=== PATIENT | male | born 1940 | race Caucasian/White ===

== ENCOUNTER 2022-09-16 22:11 | Emergency (ER) | payer OTHER ==
[~2022-09-16] VITALS: Ht 172.7 cm; Wt 63.5 kg
--- NOTE | 2022-09-16 22:11 | NUR ---
PT TONEY BLS. TAKEN TO BED 8
[2022-09-16 22:15] VITALS: BP 122/42
--- NOTE | 2022-09-16 22:37 | NUR ---
Urine dropped off at lab.
[2022-09-17] MEDS ORDERED: KETOROLAC 30 MG/ML VIAL IVP ONE (02:20)
[2022-09-17] MEDS ORDERED: CIPR500T4 PO (02:26)
[2022-09-17] MEDS ORDERED: cefTRIAXone 1,000 MG VIAL ONE (02:33)
--- NOTE | 2022-09-17 07:10 | NUR ---
PT RECEIVED, CARE ASSUMED. PT LAYING IN BED ASLEEP. NO ACUTE DISTRESS NOTED. V/S NOTED. WILL CONTINUE TO MONITOR
--- NOTE | 2022-09-17 08:03 | NUR ---
CALLED VALERIE NULL/Jan[facility] FOR TRANSFER BACK TO [facility]
[2022-09-17 10:06] VITALS: BP 127/89
--- NOTE | 2022-09-17 10:06 | NUR ---
REPORT GIVEN TO SHAVONNE PERALES AT [facility] FOR CONTINUATION OF CARE
== END 2022-09-17 10:06 ==
LOC: MED 22:11
DX: N39.0 Urinary tract infection, site not specified (principal); R31.9 Hematuria, unspecified
CPT/HCPCS: 81002; 87086; 96365; 96366; 96375; 99285; J0696; J1885